=== PATIENT | male | born 1955 | race African-American/Black ===

== ENCOUNTER 2017-09-26 03:31 | Inpatient (IN) | payer MEDICAID ==
[~2017-09-26] VITALS: Ht 188 cm; Wt 79.4 kg
--- NOTE | ~2017-09-26 | EC ---
PATIENT:SHOSHANA STANLEY DATE OF SERVICE: 09/26/17 SEX: M MEDICAL RECORD: [id number] DATE OF : [birth year] LOCATION:[facility] AGE OF PATIENT: 62 ADMISSION DATE: 09/26/17 REFERRING PHYSICIAN: INTERPRETING PHYSICIAN: RUBINA RODRIGUES MD ECHOCARDIOGRAM REPORT ECHO CHARGES 4 ECHO COMPLETE Date: CLINICAL DIAGNOSIS: SWELLING ASSESS FOR CHF ECHOCARDIOGRAPHIC MEASUREMENTS (adult normal given) AC root (d.<3.7cm) 3.9 cm LV Septum d (<1.2 cm> 1.2 cm Valve Excursion 1.9 cm LV Septum (systole) 1.6 cm Left Atria (s.<4.0cm> 4.9 cm LVPW d(<1.2cm) 1.7 cm RV (d.<2.3cm) 5.8 cm LVPW (sytole) 1.9 cm LV diastole(<5.6CM) 6.3 cm MV E-F(>70mm/sec) cm LV systole 4.2 cm LVOT Diameter 2.2 cm MV exc.(>10mm) 2.0 cm Est.ejection fraction (50-75%) % DOPPLER: LVIT cm/sec A 87.0 cm/sec E 112 cm/sec LA cm/sec RVSP 86 mmHg LVOT 165 cm/sec AOP1/2T 388 m/s Asc. Ao 237 cm/sec RVOT 52 cm/sec RA cm/sec PA 147 cm/sec AV Gradient Peak 22.53mmHg AV Mean 8.83 mmHg AV Area 2.5 cm MV Gradient Peak 5.16 mmHg MV Mean 2.28 mmHg MV Area cm COMMENTS: Cnc Lathe Machine Operator: Kassandra AMOR Bottom Finisher: Nick Rodrigues TAPE# PACS Pericardial Effusion Y DATE OF SERVICE: 09/29/2017 PROCEDURE: Transthoracic echocardiogram. FINDINGS: 1. Left ventricle shows mild left ventricular hypertrophy and flow characteristics are normal. Ejection fraction is 60%. 2. Right ventricle is severely dilated and hypokinetic, especially in the free wall. 3. The left atrium is moderately to severely dilated. ECHOCARDIOGRAM REPORT [id number] SHOSHANA STANLEY 4. The aortic valve has [id number] aortic insufficiency. 5. The mitral valve has moderate mitral regurgitation. 6. Tricuspid valve has severe tricuspid regurgitation. There is severe elevation of the pulmonary pressures with severe pulmonary hypertension. 7. The pulmonic valve shows mild pulmonic insufficiency. 8. The right atrium is severely dilated. IMPRESSION: The patient has evidence of hypertensive heart disease with left ventricular hypertrophy; however, the most clinically relevant is his significant elevation of his pulmonary pressures with severe pulmonary hypertension. Would consider sudden pressure overload such as pulmonary embolism. TRANSINT:[id number] Voice Confirmation ID: [id number] DOCUMENT ID: [id number] 10/06/2017 Edited to correct date of service, dm. RUBINA RODRIGUES MD at 1426 CC: [id number] DICTATION DATE: 09/30/17 1524 VENEER TAPING MACHINE OPERATOR: 09/30/17 1540 DIS IN 10/02/17 [id number] [place] [address]
[2017-09-26 07:00] VITALS: BP 124/73
[2017-09-26 07:31] VITALS: BP 126/72; BMI 22.5
[2017-09-26] MEDS ORDERED: NICODERM C1 PATCH .1 TRANSDERM (07:46)
[2017-09-26] MEDS ORDERED: HCTZ25 MG PO (07:47)
[2017-09-26] MEDS ORDERED: TEMAZEPAM30 MG PO (07:56)
[2017-09-26] MEDS ORDERED: PROAIR HFA8.5 GM INH (07:58)
[2017-09-26 10:14] VITALS: Ht 188 cm; Wt 79.4 kg
[2017-09-26 11:00] VITALS: BP 129/90
[2017-09-26 12:05] LABS: BASOPHILS 0.1 % (0-2); EOSINOPHILS 0.1 % (0-7); HEMATOCRIT 33.2 % (42.0-54.0); HEMOGLOBIN 10.8 g/dL (13.5-17.5); IMMATURE GRANULOCYTES 0.2 % (0-5); LYMPHOCYTES 12.8 % (15-50); MCH 26.7 pg (26.0-34.0); MCHC 32.5 g/dL (31.0-37.0); MEAN PLATELET VOLUME 12.4 fL (7.4-10.4); MONOCYTES 6.1 % (2-11); NEUTROPHILS 80.7 % (40-80); PLATELET COUNT 192 10x3/uL (130-400); RBC 4.05 10x6/uL (4.20-6.10); RDW 16.6 % (11.5-14.5); WBC 9.2 10x3/uL (4.8-10.8)
[2017-09-26 12:32] LABS: ALBUMIN 2.9 g/dL (3.4-5.0); ANION GAP 16.6 mmol/L (8-16); BILIRUBIN - TOTAL 0.98 mg/dL (0.2-1.3); CALCIUM 9.1 mg/dL (8.5-10.1); CARBON DIOXIDE 23.5 mmol/L (21.0-32.0); CREATININE - SERUM 1.1 mg/dL (0.6-1.3); POTASSIUM - SERUM 5.1 mmol/L (3.5-5.1); PROTEIN - SERUM 8.1 g/dL (6.4-8.2)
[2017-09-26 14:04] LABS: CHOL - HDL RATIO 3.5 ratio (2.3-4.9); LDL-HDL RATIO 2.3 ratio (1.5-3.5); THYROID STIMULATING HORMONE 0.46 uIU/mL (0.36-3.74)
[2017-09-26 15:00] VITALS: BP 151/64
[2017-09-26 19:00] VITALS: BP 126/72
[2017-09-27 04:17] VITALS: BP 123/60
[2017-09-27 07:30] LABS: ALPHA FETOPROTEIN -(TUMOR MRK) 1.7 ng/mL (0.0-8.3); HEPATITIS C ANTIBODY <0.1 (0.0-0.9)
[2017-09-27 08:40] VITALS: BP 156/57
[2017-09-27 11:05] LABS: BASOPHILS 0.3 % (0-2); EOSINOPHILS 2.5 % (0-7); HEMATOCRIT 31.7 % (42.0-54.0); IMMATURE GRANULOCYTES 0.3 % (0-5); LYMPHOCYTES 30.4 % (15-50); MCH 26.2 pg (26.0-34.0); MCHC 31.5 g/dL (31.0-37.0); MCV 83.2 fL (80.0-100.0); MEAN PLATELET VOLUME 11.8 fL (7.4-10.4); MONOCYTES 10.5 % (2-11); PLATELET COUNT 179 10x3/uL (130-400); RBC 3.81 10x6/uL (4.20-6.10); RDW 16.5 % (11.5-14.5); WBC 7.3 10x3/uL (4.8-10.8)
[2017-09-27 11:39] LABS: ALBUMIN 2.4 g/dL (3.4-5.0); BILIRUBIN - TOTAL 0.85 mg/dL (0.2-1.3); CALCIUM 8.8 mg/dL (8.5-10.1); CARBON DIOXIDE 27.6 mmol/L (21.0-32.0); PROTEIN - SERUM 6.7 g/dL (6.4-8.2)
[2017-09-27 11:40] LABS: ANION GAP 11.5 mmol/L (8-16); CREATININE - SERUM 1.6 mg/dL (0.6-1.3); POTASSIUM - SERUM 4.1 mmol/L (3.5-5.1)
[2017-09-27 13:03] VITALS: BP 126/56
[2017-09-27 16:59] VITALS: BP 104/56
[2017-09-27 20:22] VITALS: BP 134/68
[2017-09-28 04:40] VITALS: BP 119/59
[2017-09-28 06:35] LABS: BASOPHILS 0.3 % (0-2); HEMATOCRIT 32.6 % (42.0-54.0); HEMOGLOBIN 10.3 g/dL (13.5-17.5); IMMATURE GRANULOCYTES 0.2 % (0-5); LYMPHOCYTES 42.4 % (15-50); MCH 26.4 pg (26.0-34.0); MCHC 31.6 g/dL (31.0-37.0); MCV 83.6 fL (80.0-100.0); MONOCYTES 10.7 % (2-11); NEUTROPHILS 43.4 % (40-80); PLATELET COUNT 199 10x3/uL (130-400); RDW 16.9 % (11.5-14.5); WBC 6.6 10x3/uL (4.8-10.8)
[2017-09-28 07:25] LABS: ALBUMIN 2.4 g/dL (3.4-5.0); ANION GAP 11.1 mmol/L (8-16); BILIRUBIN - TOTAL 0.69 mg/dL (0.2-1.3); CALCIUM 8.9 mg/dL (8.5-10.1); CARBON DIOXIDE 27.9 mmol/L (21.0-32.0); CREATININE - SERUM 1.4 mg/dL (0.6-1.3); PROTEIN - SERUM 6.7 g/dL (6.4-8.2)
[2017-09-28 08:30] VITALS: BP 141/54
[2017-09-28 13:22] VITALS: BP 124/56
[2017-09-28 17:23] VITALS: BP 126/62
[2017-09-28 21:18] VITALS: BP 119/60
[2017-09-29 04:09] VITALS: BP 132/62
[2017-09-29 05:57] LABS: BASOPHILS 0.3 % (0-2); EOSINOPHILS 6.7 % (0-7); HEMOGLOBIN 10.3 g/dL (13.5-17.5); IMMATURE GRANULOCYTES 0.2 % (0-5); LYMPHOCYTES 38.3 % (15-50); MCH 25.8 pg (26.0-34.0); MCHC 31.2 g/dL (31.0-37.0); MCV 82.5 fL (80.0-100.0); MEAN PLATELET VOLUME 11.3 fL (7.4-10.4); MONOCYTES 11.8 % (2-11); NEUTROPHILS 42.7 % (40-80); PLATELET COUNT 209 10x3/uL (130-400); RDW 16.3 % (11.5-14.5); WBC 6.1 10x3/uL (4.8-10.8)
[2017-09-29 06:17] LABS: ALBUMIN 2.3 g/dL (3.4-5.0); BILIRUBIN - TOTAL 0.7 mg/dL (0.2-1.3); CALCIUM 8.5 mg/dL (8.5-10.1); CREATININE - SERUM 1.3 mg/dL (0.6-1.3); PROTEIN - SERUM 6.3 g/dL (6.4-8.2)
[2017-09-29 08:31] VITALS: BP 137/48
[2017-09-29 13:03] VITALS: BP 143/65
[2017-09-29 16:28] VITALS: BP 131/60
[2017-09-29 20:55] VITALS: BP 132/61
[2017-09-29 23:17] VITALS: BP 128/51
[2017-09-30 04:24] VITALS: BP 143/59
[2017-09-30 06:25] LABS: BASOPHILS 0.6 % (0-2); EOSINOPHILS 7.4 % (0-7); HEMATOCRIT 33.8 % (42.0-54.0); HEMOGLOBIN 10.8 g/dL (13.5-17.5); IMMATURE GRANULOCYTES 0.2 % (0-5); LYMPHOCYTES 37.2 % (15-50); MCH 26.5 pg (26.0-34.0); MCV 82.8 fL (80.0-100.0); MEAN PLATELET VOLUME 11.1 fL (7.4-10.4); MONOCYTES 12.9 % (2-11); NEUTROPHILS 41.7 % (40-80); PLATELET COUNT 221 10x3/uL (130-400); RBC 4.08 10x6/uL (4.20-6.10); RDW 16.6 % (11.5-14.5); WBC 6.5 10x3/uL (4.8-10.8)
[2017-09-30 06:29] LABS: ALBUMIN 2.6 g/dL (3.4-5.0); ANION GAP 12.8 mmol/L (8-16); BILIRUBIN - TOTAL 0.91 mg/dL (0.2-1.3); CALCIUM 8.9 mg/dL (8.5-10.1); CARBON DIOXIDE 26.6 mmol/L (21.0-32.0); CREATININE - SERUM 1.4 mg/dL (0.6-1.3); POTASSIUM - SERUM 4.4 mmol/L (3.5-5.1); PROTEIN - SERUM 7.1 g/dL (6.4-8.2)
[2017-09-30 08:10] VITALS: BP 132/58
[2017-09-30 11:57] VITALS: BP 139/56
[2017-09-30] MEDS ORDERED: MUCINEX600 MG PO (13:55)
[2017-09-30] MEDS ORDERED: TESSALON PERLE100 MG PO (13:55)
[2017-09-30] MEDS ORDERED: AUGMENTIN 875-11 TAB PO (13:57)
[2017-09-30 16:19] VITALS: BP 147/49
[2017-09-30 20:30] VITALS: BP 146/48
[2017-10-01 01:01] VITALS: BP 131/59
[2017-10-01 05:02] VITALS: BP 127/57
[2017-10-01 06:02] LABS: BASOPHILS 0.8 % (0-2); EOSINOPHILS 9.1 % (0-7); HEMATOCRIT 32.5 % (42.0-54.0); HEMOGLOBIN 10.4 g/dL (13.5-17.5); IMMATURE GRANULOCYTES 0.2 % (0-5); MCH 26.3 pg (26.0-34.0); MCV 82.1 fL (80.0-100.0); MEAN PLATELET VOLUME 11.6 fL (7.4-10.4); MONOCYTES 15.1 % (2-11); NEUTROPHILS 31.8 % (40-80); PLATELET COUNT 220 10x3/uL (130-400); RBC 3.96 10x6/uL (4.20-6.10); RDW 16.4 % (11.5-14.5); WBC 5.9 10x3/uL (4.8-10.8)
[2017-10-01 06:17] LABS: ALBUMIN 2.4 g/dL (3.4-5.0); ANION GAP 14.2 mmol/L (8-16); BILIRUBIN - TOTAL 0.6 mg/dL (0.2-1.3); CALCIUM 8.7 mg/dL (8.5-10.1); CARBON DIOXIDE 24.8 mmol/L (21.0-32.0); CREATININE - SERUM 1.3 mg/dL (0.6-1.3); PROTEIN - SERUM 6.8 g/dL (6.4-8.2)
[2017-10-01 07:51] VITALS: BP 117/51
[2017-10-01 11:27] VITALS: BP 130/58
[2017-10-01 16:33] VITALS: BP 135/54
[2017-10-01 22:04] VITALS: BP 127/60
[2017-10-02] VITALS: BP 121/52
[2017-10-02 06:00] VITALS: BP 138/62
[2017-10-02 06:17] LABS: BASOPHILS 0.8 % (0-2); EOSINOPHILS 9.9 % (0-7); HEMATOCRIT 35.3 % (42.0-54.0); HEMOGLOBIN 11.1 g/dL (13.5-17.5); IMMATURE GRANULOCYTES 0.2 % (0-5); LYMPHOCYTES 39.8 % (15-50); MCH 26.2 pg (26.0-34.0); MCHC 31.4 g/dL (31.0-37.0); MCV 83.3 fL (80.0-100.0); MEAN PLATELET VOLUME 11.1 fL (7.4-10.4); MONOCYTES 15.2 % (2-11); NEUTROPHILS 34.1 % (40-80); PLATELET COUNT 217 10x3/uL (130-400); RBC 4.24 10x6/uL (4.20-6.10); RDW 16.6 % (11.5-14.5); WBC 4.9 10x3/uL (4.8-10.8)
[2017-10-02 07:04] LABS: ALBUMIN 2.5 g/dL (3.4-5.0); ANION GAP 14.9 mmol/L (8-16); BILIRUBIN - TOTAL 0.68 mg/dL (0.2-1.3); CALCIUM 8.4 mg/dL (8.5-10.1); CARBON DIOXIDE 24.5 mmol/L (21.0-32.0); CREATININE - SERUM 1.5 mg/dL (0.6-1.3); POTASSIUM - SERUM 4.4 mmol/L (3.5-5.1); PROTEIN - SERUM 6.6 g/dL (6.4-8.2)
[2017-10-02 08:08] VITALS: BP 104/68
[2017-10-02] MEDS ORDERED: ELIQUIS5 MG PO (11:09)
[2017-10-02 11:52] VITALS: BP 127/59
[2017-10-02] MEDS ORDERED: HYDROCODONE-APA1 TAB PO (13:58)
[2017-10-02] MEDS ORDERED: NICODERM C1 PATCH .1 TRANSDERM (13:58)
== END 2017-10-02 14:30 | disposition home or self-care (01) | DRG 193 ==
LOC: D.ICU 03:31 → D.MS 06:00 → D.CVICU 06:00 → D.MS 22:27
PROVIDERS: Family Medicine Adult Medicine
DX: J18.9 Pneumonia, unspecified organism (principal); I26.99 Other pulmonary embolism without acute cor pulmonale; J44.0 Chronic obstructive pulmonary disease with (acute) lower respiratory infection; F17.203 Nicotine dependence unspecified, with withdrawal; J98.11 Atelectasis; R11.2 Nausea with vomiting, unspecified; R10.9 Unspecified abdominal pain; I27.20 Pulmonary hypertension, unspecified; K59.00 Constipation, unspecified; I11.9 Hypertensive heart disease without heart failure

== ENCOUNTER → 2018-08-03 08:53 | Outpatient (CLI) | payer MEDICAID ==
[2017-09-26 10:14] VITALS: BMI 22.4
[~2018-08-03 08:53] MED LIST: AUGMENTIN 875-11 TAB PO; ELIQUIS5 MG PO; HCTZ25 MG PO; HYDROCODONE-APA1 TAB PO; MUCINEX600 MG PO; NICODERM C1 PATCH .1 TRANSDERM; PROAIR HFA8.5 GM INH; TEMAZEPAM30 MG PO; TESSALON PERLE100 MG PO
== END | disposition home or self-care (01) ==
LOC: D.US 07-21 13:00
DX: E04.1 Nontoxic single thyroid nodule (principal)